=== PATIENT | male | born 1945 | race Caucasian/White ===

== ENCOUNTER 2018-04-03 14:27 | Inpatient (IN) | payer MEDICARE, OTHER ==
[~2018-04-03] VITALS: Ht 193 cm; Wt 78.0 kg
[~2018-04-03 14:27] MED LIST: ACET-709 PO; ASPI-496 PO; CHOL2000 PO; CITA20TA5 PO; CYAN100072 PO; CYAN2000 PO; DULO30CA2 PO; GABA300C10 PO; GABA600T2 PO; MORP60TA22 PO; MORPHINE PO; OMEG1CAP23 PO; PROM25TA10 PO; QUET300T PO; TAMS0.4C2 PO; TIZA4CAP PO; TIZA4TAB PO; Will bring list DOS
[2018-04-03] MEDS ORDERED: NALOXONE 0.4 MG/ML, 1ML ONE (14:50)
[2018-04-03] MEDS ORDERED: NALOXONE 0.4 MG/ML, 1ML IVPush ONE (15:00)
[2018-04-03] MEDS ORDERED: SODIUM CHLORIDE FLUSH 10ML SYR IVF ONE (15:00)
[2018-04-03 15:28] LABS: MEAN CORPUSCULAR HEMOGLOBIN 29.6 pg (27.5-34.5); MEAN CORPUSCULAR HGB CONC 32.9 g/dL (33.2-36.2); MEAN CORPUSCULAR VOLUME 90.1 fL (81-97); MEAN PLATELET VOLUME 9.8 fL (7.4-10.4); PLATELET COUNT 315 x10^3/uL (130-400); RED BLOOD COUNT 4.93 x10^6/uL (4.38-5.82)
[2018-04-03 15:38] LABS: ALBUMIN 3.5 g/dL (3.4-5.0); ANION GAP 8 mmol/L (5-15); CALCIUM 8.9 mg/dL (8.5-10.1); CHLORIDE 113 mmol/L (98-107)
[2018-04-03 15:45] LABS: ALANINE AMINOTRANSFERASE 59 U/L (12-78); ALKALINE PHOSPHATASE 144 U/L (45-117); BILIRUBIN,TOTAL 0.5 mg/dL (0.2-1.0); CREATININE 1.15 mg/dL (0.7-1.3); TOTAL PROTEIN 7.2 g/dL (6.4-8.2); TROPONIN I < 0.015 ng/mL (0.000-0.045)
[2018-04-03 16:14] LABS: BASOPHILS # (AUTO) 0.05 x10^3/uL (0-0.1); BASOPHILS % (AUTO) 0 % (0-1); EOSINOPHILS # (AUTO) 0.22 x10^3/uL (0-0.4); EOSINOPHILS % (AUTO) 1 % (1-7); LYMPHOCYTES # (AUTO) 2.04 x10^3/uL (1-3.4); LYMPHOCYTES % (AUTO) 11 % (22-44); MD SCAN; MONOCYTES # (AUTO) 1.05 x10^3/uL (0.2-0.8); MONOCYTES % (AUTO) 6 % (2-9); NEUTROPHILS # (AUTO) 15.77 x10^3/uL (1.8-6.8); NEUTROPHILS % (AUTO) 82 % (42-75)
[2018-04-03 16:17] LABS: INTERNATIONAL NORMALIZED RATIO 1.07 (0.93-1.1); PROTHROMBIN TIME 11.1 Seconds (9.6-11.5)
[2018-04-03 17:55] LABS: CULTURE INDICATED? YES; MICROSCOPIC INDICATED
[2018-04-03] MEDS ORDERED: CEFTRIAXONE PMX 1GM/50ML 50 ML ONE (18:04)
[2018-04-03] MEDS ORDERED: CEFTRIAXONE PMX 1GM/50ML 50 ML IVPB ONE (18:30)
[2018-04-03] MEDS ORDERED: ONDANSETRON 2MG/ML, 2ML IVPush PRN (18:30)
[2018-04-03] MEDS ORDERED: SODIUM CHLORIDE 0.9% 1,000ML IVBOLUS ONE (18:30)
[2018-04-03] MEDS ORDERED: BISACODYL 10 MG SUPP PR PRN (18:30)
[2018-04-03 18:59] LABS: FREE T4 (FREE THYROXINE) 0.7 ng/dL (0.76-1.46); THYROID STIMULATING HORMONE 0.602 mIU/L (0.358-3.740)
[2018-04-03 19:19] LABS: SALICYLATE LEVEL < 1.7 mg/dL (2.8-20.0)
[2018-04-03 19:37] LABS: AMPHETAMINE SCREEN, URINE Negative (Negative); BARBITURATE SCREEN, URINE Negative (Negative); BENZODIAZEPINE SCREEN, URINE Positive (Negative); CANNABINOID SCREEN, URINE Negative (Negative); COCAINE SCREEN, URINE Negative (Negative); METHADONE SCREEN, URINE Negative (Negative); OPIATE SCREEN, URINE Positive (Negative)
[2018-04-03] MEDS ORDERED: HEPARIN 5,000 UNITS/ML, 1ML ONE (19:45)
[2018-04-03] MEDS: SODIUM CHLORIDE 0.9% 1,000 ML IV SCH (19:55)
[2018-04-03] MEDS: HEPARIN 5,000 UNITS/ML, 1ML SQ SCH (19:58)
[2018-04-03] MEDS ORDERED: LORazepam 2 MG/ML, 1ML ONE (23:22)
[2018-04-03] MEDS ORDERED: LORazepam 2 MG/ML, 1ML IVPush ONE (23:30)
[2018-04-03] MEDS ORDERED: HALOPERIDOL 5 MG/ML ONE (23:58)
[2018-04-04] MEDS ORDERED: HALOPERIDOL 5 MG/ML IM ONE
[2018-04-04] MEDS ORDERED: OMNIPAQUE 350 MG/ML, 100ML BOTTLE ONE (00:49)
[2018-04-04 05:02] LABS: BASOPHILS # (AUTO) 0.05 x10^3/uL (0-0.1); BASOPHILS % (AUTO) 0 % (0-1); EOSINOPHILS # (AUTO) 0.12 x10^3/uL (0-0.4); EOSINOPHILS % (AUTO) 1 % (1-7); LYMPHOCYTES # (AUTO) 1.73 x10^3/uL (1-3.4); LYMPHOCYTES % (AUTO) 12 % (22-44); MD NO; MEAN CORPUSCULAR HEMOGLOBIN 29.9 pg (27.5-34.5); MEAN CORPUSCULAR HGB CONC 33.1 g/dL (33.2-36.2); MEAN CORPUSCULAR VOLUME 90.5 fL (81-97); MEAN PLATELET VOLUME 10.1 fL (7.4-10.4); MONOCYTES # (AUTO) 0.72 x10^3/uL (0.2-0.8); MONOCYTES % (AUTO) 5 % (2-9); NEUTROPHILS # (AUTO) 11.56 x10^3/uL (1.8-6.8); NEUTROPHILS % (AUTO) 82 % (42-75); PLATELET COUNT 314 x10^3/uL (130-400); RED BLOOD COUNT 4.42 x10^6/uL (4.38-5.82); RED CELL DISTRIBUTION WIDTH 14.4 % (9.4-14.8)
[2018-04-04 05:12] LABS: ALANINE AMINOTRANSFERASE 65 U/L (12-78); ANION GAP 9 mmol/L (5-15); CALCIUM 8.5 mg/dL (8.5-10.1); CHLORIDE 118 mmol/L (98-107); CREATININE 0.83 mg/dL (0.7-1.3)
[2018-04-04 05:15] LABS: ALKALINE PHOSPHATASE 125 U/L (45-117); BILIRUBIN,TOTAL 0.4 mg/dL (0.2-1.0); TOTAL PROTEIN 6.3 g/dL (6.4-8.2)
[2018-04-04] MEDS ORDERED: HEPARIN 5,000 UNITS/ML, 1ML ONE (05:27)
[2018-04-04] MEDS: SODIUM CHLORIDE 0.9% 1,000 ML IV SCH ×3 (05:53→22:10)
[2018-04-04] MEDS: HEPARIN 5,000 UNITS/ML, 1ML SQ SCH ×3 (05:57→17:55)
[2018-04-04] MEDS ORDERED: CEFTRIAXONE PMX 1GM/50ML 50 ML ONE (08:11)
[2018-04-04] MEDS: CEFTRIAXONE PMX 1GM/50ML 50 ML IV SCH (08:17)
[2018-04-04 08:58] VITALS: BP 155/92
[2018-04-04] MEDS ORDERED: KETOROLAC 30 MG/1 ML IM ONE (12:00)
[2018-04-04] MEDS ORDERED: OXYcodone 5 MG/5 ML ORAL.SOL UDC PO PRN (12:00)
[2018-04-04 12:29] VITALS: BP 155/92
[2018-04-04 13:35] VITALS: BP 163/91
[2018-04-04 18:36] VITALS: BP 159/86
[2018-04-04] MEDS: ACETAMINOPHEN 325 MG TABLET PO PRN (21:51)
[2018-04-05] MEDS ORDERED: DIPHENHYDRAMINE 25 MG CAPSULE PO ONE
[2018-04-05 01:06] VITALS: BP 168/84
[2018-04-05] MEDS: HEPARIN 5,000 UNITS/ML, 1ML SQ SCH ×3 (03:29→17:49)
[2018-04-05] MEDS: ACETAMINOPHEN 325 MG TABLET PO PRN (03:32)
[2018-04-05 07:15] VITALS: BP 161/68
[2018-04-05] MEDS: CEFTRIAXONE PMX 1GM/50ML 50 ML IV SCH (07:30)
[2018-04-05 08:54] LABS: BASOPHILS # (AUTO) 0.04 x10^3/uL (0-0.1); BASOPHILS % (AUTO) 0 % (0-1); EOSINOPHILS # (AUTO) 0.22 x10^3/uL (0-0.4); EOSINOPHILS % (AUTO) 2 % (1-7); LYMPHOCYTES # (AUTO) 1.65 x10^3/uL (1-3.4); LYMPHOCYTES % (AUTO) 17 % (22-44); MD SCAN; MEAN CORPUSCULAR HEMOGLOBIN 29.5 pg (27.5-34.5); MEAN CORPUSCULAR HGB CONC 32.7 g/dL (33.2-36.2); MEAN CORPUSCULAR VOLUME 90.3 fL (81-97); MEAN PLATELET VOLUME 9.9 fL (7.4-10.4); MONOCYTES # (AUTO) 0.54 x10^3/uL (0.2-0.8); MONOCYTES % (AUTO) 6 % (2-9); NEUTROPHILS # (AUTO) 7.14 x10^3/uL (1.8-6.8); NEUTROPHILS % (AUTO) 74 % (42-75); PLATELET COUNT 245 x10^3/uL (130-400); RED BLOOD COUNT 3.94 x10^6/uL (4.38-5.82); RED CELL DISTRIBUTION WIDTH 14.2 % (9.4-14.8)
[2018-04-05 08:55] LABS: ALANINE AMINOTRANSFERASE 63 U/L (12-78); ALBUMIN 2.8 g/dL (3.4-5.0); ANION GAP 7 mmol/L (5-15); CALCIUM 7.8 mg/dL (8.5-10.1); CHLORIDE 113 mmol/L (98-107); CREATININE 0.57 mg/dL (0.7-1.3)
[2018-04-05 08:57] LABS: ALKALINE PHOSPHATASE 113 U/L (45-117); BILIRUBIN,TOTAL 0.6 mg/dL (0.2-1.0); TOTAL PROTEIN 5.9 g/dL (6.4-8.2)
[2018-04-05] MEDS ORDERED: POTASSIUM CHLORIDE 20 MEQ PACKET PO SCH (09:30)
[2018-04-05] MEDS: KETOROLAC 30 MG/1 ML IM SCH ×3 (11:07→20:33)
[2018-04-05] MEDS: SODIUM CHLORIDE 0.9% 1,000 ML IV SCH ×2 (13:00→20:33)
[2018-04-05 14:13] VITALS: BP 170/80
[2018-04-05 19:03] VITALS: BP 165/88
[2018-04-06 02:00] VITALS: BP 156/80
[2018-04-06] MEDS: HEPARIN 5,000 UNITS/ML, 1ML SQ SCH ×2 (02:30→10:14)
[2018-04-06] MEDS ORDERED: ONDANSETRON 4 MG TABLET ONE (03:29)
[2018-04-06] MEDS: KETOROLAC 30 MG/1 ML IM SCH ×2 (03:34→10:13)
[2018-04-06 06:36] VITALS: BP 167/94
[2018-04-06] MEDS: CEFTRIAXONE PMX 1GM/50ML 50 ML IV SCH (07:58)
[2018-04-06] MEDS: SODIUM CHLORIDE 0.9% 1,000 ML IV SCH (07:58)
== END 2018-04-06 13:30 | disposition home or self-care (01) | DRG 871 ==
LOC: ED 18:29 → EDIP 18:30 → ED 18:53 → 4WST 04-04 08:41
PROVIDERS: ADMIT Internal Medicine; ATTEND Internal Medicine
DX: A41.9 Sepsis, unspecified organism (principal); G92 Toxic encephalopathy; E87.3 Alkalosis; N39.0 Urinary tract infection, site not specified; F11.20 Opioid dependence, uncomplicated; G47.00 Insomnia, unspecified; T50.905A Adverse effect of unspecified drugs, medicaments and biological substances, initial encounter; Y92.89 Other specified places as the place of occurrence of the external cause; G89.29 Other chronic pain; F43.10 Post-traumatic stress disorder, unspecified; F32.9 Major depressive disorder, single episode, unspecified; F41.9 Anxiety disorder, unspecified; N40.0 Benign prostatic hyperplasia without lower urinary tract symptoms; Z66 Do not resuscitate; Z90.5 Acquired absence of kidney; Z79.82 Long term (current) use of aspirin; Z89.422 Acquired absence of other left toe(s); Z98.1 Arthrodesis status
CPT/HCPCS: 36415; 36600; 70450; 71045; 71275; 80053; 80074; 80307; 80329; 81001; 82140; 82803; 83605; 84100; 84145; 84439; 84443; 84484; 85025; 85379; 85610; 85730; 87040; 87086; 93005; 96365; 96375; 96376; J0696; J1644; J1885; J2310; J2405; Q9967; G0480; J1630; J2060; J7030; Q0163

== ENCOUNTER 2018-05-02 10:52 | Inpatient (IN) | payer OTHER ==
[~2018-05-02] VITALS: Ht 193 cm; Wt 75.9 kg
[~2018-05-02 10:52] MED LIST changes: +VANCOMYCIN 1,700 MG in SODIUM CHLORIDE 0.9% 250 ML IV SCH
[2018-05-02] MEDS ORDERED: SODIUM CHLORIDE 0.9% 1,000ML IVBOLUS ONE (11:30)
[2018-05-02] MEDS ORDERED: VANCOMYCIN PER PHARMACY MC ONE (11:30)
[2018-05-02] MEDS ORDERED: AMPICILLIN/SULBACTAM 3 GM in SODIUM CHLORIDE 0.9% 100 ML IV ONE (11:30)
[2018-05-02] MEDS ORDERED: PLEASE ENTER HEIGHT AND WEIGHT MC SCH (11:30)
[2018-05-02] MEDS ORDERED: PHARMACOKINETIC CONSULTATION MC ONE ×2 (12:00→17:00)
[2018-05-02] MEDS ORDERED: VANCOMYCIN 1,700 MG in SODIUM CHLORIDE 0.9% 250 ML IV ONE (12:00)
[2018-05-02 12:44] LABS: BASOPHILS # (AUTO) 0.08 x10^3/uL (0-0.1); BASOPHILS % (AUTO) 1 % (0-1); EOSINOPHILS # (AUTO) 0.08 x10^3/uL (0-0.4); EOSINOPHILS % (AUTO) 1 % (1-7); LYMPHOCYTES # (AUTO) 1.36 x10^3/uL (1-3.4); LYMPHOCYTES % (AUTO) 9 % (22-44); MD NO; MEAN CORPUSCULAR HEMOGLOBIN 29.2 pg (27.5-34.5); MEAN CORPUSCULAR VOLUME 88.3 fL (81-97); MEAN PLATELET VOLUME 10.5 fL (7.4-10.4); MONOCYTES # (AUTO) 0.96 x10^3/uL (0.2-0.8); MONOCYTES % (AUTO) 6 % (2-9); NEUTROPHILS # (AUTO) 13.11 x10^3/uL (1.8-6.8); NEUTROPHILS % (AUTO) 84 % (42-75); PLATELET COUNT 392 x10^3/uL (130-400); RED BLOOD COUNT 4.59 x10^6/uL (4.38-5.82); RED CELL DISTRIBUTION WIDTH 14.7 % (9.4-14.8)
[2018-05-02 12:49] LABS: INTERNATIONAL NORMALIZED RATIO 1.35 (0.93-1.1); PROTHROMBIN TIME 13.8 Seconds (9.6-11.5)
[2018-05-02 12:53] LABS: ALBUMIN 2.1 g/dL (3.4-5.0); CALCIUM 7.8 mg/dL (8.5-10.1); CHLORIDE 90 mmol/L (98-107)
[2018-05-02 12:58] LABS: ALANINE AMINOTRANSFERASE 62 U/L (12-78); ALKALINE PHOSPHATASE 207 U/L (45-117); BILIRUBIN,TOTAL 1.3 mg/dL (0.2-1.0); CREATININE 0.59 mg/dL (0.7-1.3); TOTAL PROTEIN 7.1 g/dL (6.4-8.2); TROPONIN I < 0.015 ng/mL (0.000-0.045)
[2018-05-02 13:02] LABS: ANION GAP 8 mmol/L (5-15)
[2018-05-02] MEDS ORDERED: NS + 40MEQ KCL 1,000 ML IV ONE (13:24)
[2018-05-02] MEDS ORDERED: POTASSIUM CHLORIDE 40 MEQ in SODIUM CHLORIDE 0.9% 500 ML IV ONE (13:30)
[2018-05-02] MEDS ORDERED: LORazepam 2 MG/ML, 1ML ONE (13:43)
[2018-05-02] MEDS ORDERED: POTASSIUM CHLORIDE 40 MEQ in SODIUM CHLORIDE 0.9% 1,000 ML IV ONE (14:00)
[2018-05-02] MEDS ORDERED: LORazepam 2 MG/ML, 1ML IVPush ONE (14:00)
[2018-05-02] MEDS ORDERED: POTASSIUM CHLORIDE 20 MEQ in LACTATED RINGERS 1,000 ML IV SCH (14:36)
[2018-05-02] MEDS ORDERED: ONDANSETRON 2MG/ML, 2ML IVPush PRN (15:00)
[2018-05-02] MEDS ORDERED: morphine SULFATE 10 MG/ML, 1ML IVPush PRN (15:00)
[2018-05-02] MEDS ORDERED: ONDANSETRON ODT 4 MG PO PRN (15:00)
[2018-05-02] MEDS ORDERED: PROMETHAZINE 25MG TABLET PO PRN (15:00)
[2018-05-02] MEDS ORDERED: PROMETHAZINE 25 MG/ML, 1ML IM PRN (15:00)
[2018-05-02] MEDS ORDERED: VANCOMYCIN PER PHARMACY MC PRN (15:00)
[2018-05-02 15:39] LABS: HCT (SEDRATE) 40.6 % (39.2-51.8)
[2018-05-02 16:21] VITALS: BP 147/76
[2018-05-02] MEDS ORDERED: PHARMACOKINETIC MONITORING MC PRN (17:00)
[2018-05-02] MEDS: ENOXAPARIN 40 MG/0.4 ML SQ SCH (17:13)
[2018-05-02] MEDS: GABAPENTIN 300 MG CAPSULE PO SCH (17:13)
[2018-05-02] MEDS: PIPERACILLIN/TAZO/PMX 3.375GM 50 ML IV SCH (18:28)
[2018-05-02 18:42] VITALS: BP 158/85
[2018-05-02] MEDS ORDERED: POTASSIUM CHLORIDE 40 MEQ in LACTATED RINGERS 1,000 ML IV SCH (19:00)
[2018-05-02] MEDS: LACTATED RINGERS IV SCH (20:30)
[2018-05-02] MEDS: POTASSIUM ACETATE IV SCH (20:30)
[2018-05-03 00:27] VITALS: BP 133/75
[2018-05-03] MEDS: GABAPENTIN 300 MG CAPSULE PO SCH ×3 (01:05→18:12)
[2018-05-03] MEDS: PIPERACILLIN/TAZO/PMX 3.375GM 50 ML IV SCH ×3 (03:07→19:23)
[2018-05-03 06:06] LABS: BASOPHILS # (AUTO) 0.07 x10^3/uL (0-0.1); BASOPHILS % (AUTO) 1 % (0-1); EOSINOPHILS # (AUTO) 0.07 x10^3/uL (0-0.4); EOSINOPHILS % (AUTO) 1 % (1-7); LYMPHOCYTES # (AUTO) 1.61 x10^3/uL (1-3.4); LYMPHOCYTES % (AUTO) 12 % (22-44); MD NO; MEAN CORPUSCULAR HEMOGLOBIN 29.5 pg (27.5-34.5); MEAN CORPUSCULAR HGB CONC 32.9 g/dL (33.2-36.2); MEAN CORPUSCULAR VOLUME 89.7 fL (81-97); MEAN PLATELET VOLUME 10.5 fL (7.4-10.4); MONOCYTES # (AUTO) 0.92 x10^3/uL (0.2-0.8); MONOCYTES % (AUTO) 7 % (2-9); NEUTROPHILS % (AUTO) 80 % (42-75); PLATELET COUNT 309 x10^3/uL (130-400); RED BLOOD COUNT 3.82 x10^6/uL (4.38-5.82); RED CELL DISTRIBUTION WIDTH 14.8 % (9.4-14.8)
[2018-05-03 06:33] LABS: CREATININE 0.43 mg/dL (0.7-1.3)
[2018-05-03 07:07] VITALS: BP 128/72
[2018-05-03 08:06] LABS: ANION GAP 8 mmol/L (5-15); CALCIUM 7.4 mg/dL (8.5-10.1); CHLORIDE 97 mmol/L (98-107)
[2018-05-03] MEDS ORDERED: ASPIRIN 81 MG TABLET EC PO SCH (09:00)
[2018-05-03] MEDS ORDERED: CITALOPRAM 20 MG TABLET PO SCH (09:00)
[2018-05-03] MEDS ORDERED: TAMSULOSIN 0.4 MG CAP.ER.24H PO SCH (09:00)
[2018-05-03 09:06] LABS: CLOSTRIDIUM DIFFICILE ANTIGEN NEGATIVE; CLOSTRIDIUM DIFFICILE TOXIN NEGATIVE (Negative)
[2018-05-03] MEDS ORDERED: VANCOMYCIN 1,400 MG in SODIUM CHLORIDE 0.9% 250 ML IV SCH (11:00)
[2018-05-03 12:09] VITALS: BP 133/68
[2018-05-03] MEDS: LACTATED RINGERS IV SCH (14:05)
[2018-05-03] MEDS: POTASSIUM ACETATE IV SCH (14:05)
[2018-05-03] MEDS: ENOXAPARIN 40 MG/0.4 ML SQ SCH (15:33)
[2018-05-03] MEDS: POTASSIUM CHLORIDE 20 MEQ TAB.ER.PRT PO SCH ×2 (15:33→18:11)
[2018-05-03 18:26] VITALS: BP 136/81
[2018-05-03 19:00] LABS: HEMOGLOBIN A1C 6.5 % (4.2-6.3)
[2018-05-04 00:59] VITALS: BP 130/86
== END 2018-05-04 01:50 | disposition left against medical advice (07) | DRG 871 ==
LOC: ED 12:31 → EDIP 13:15 → 4WST 16:03
PROVIDERS: ADMIT Hospitalist; ATTEND Hospitalist
DX: A41.9 Sepsis, unspecified organism (principal); G93.41 Metabolic encephalopathy; L03.116 Cellulitis of left lower limb; E87.1 Hypo-osmolality and hyponatremia; L03.115 Cellulitis of right lower limb; E87.6 Hypokalemia; F43.10 Post-traumatic stress disorder, unspecified; L03.031 Cellulitis of right toe; N40.0 Benign prostatic hyperplasia without lower urinary tract symptoms; Z66 Do not resuscitate; F32.9 Major depressive disorder, single episode, unspecified; F41.9 Anxiety disorder, unspecified; M54.9 Dorsalgia, unspecified; G47.00 Insomnia, unspecified; G89.29 Other chronic pain; S91.109A Unspecified open wound of unspecified toe(s) without damage to nail, initial encounter; S91.302A Unspecified open wound, left foot, initial encounter; S91.301A Unspecified open wound, right foot, initial encounter; X58.XXXA Exposure to other specified factors, initial encounter; Y93.89 Activity, other specified; Z87.891 Personal history of nicotine dependence; Z90.5 Acquired absence of kidney; Y92.89 Other specified places as the place of occurrence of the external cause; Z89.422 Acquired absence of other left toe(s); Z79.82 Long term (current) use of aspirin; Z79.899 Other long term (current) drug therapy
CPT/HCPCS: 36415; 71045; 80048; 80053; 83036; 83605; 83735; 84100; 84145; 84484; 85025; 85610; 85651; 87040; 87324; 93005; 93922; 96374; J0295; J1650; J2543; J3370; J3480; J2060; J2270; J7030; J7050; J7120